=== PATIENT | male | born 1995 | race Caucasian/White ===

== ENCOUNTER 2017-06-06 16:36 | Emergency (ER) | payer BC ==
[2017-06-06 16:54] VITALS: BP 139/77
--- NOTE | 2017-06-06 17:17 | UC ---
Knee Pain HPI - HPI Summary HPI Summary: Patient presents s/p fall with left knee pain, he has not been able to bear weigh since the fall. He complains of pain immediately follow the fall, states it is worse if he attempts to bear weigh, but remain painful at rest. He denies any head or neck pain, denies LOC, and reports no other concerns at this visit. - History of Current Complaint Chief Complaint: UCLowerExtremity Stated Complaint: LEFT LEG PAIN Time Seen by Provider: 06/06/17 17:03 Hx Obtained From: Patient Onset/Duration: Sudden Onset Severity Initially: Moderate Severity Currently: Severe Pain Intensity: 4 Character: Sharp, Aching Aggravating Factor(s): Movement, Weight Bearing Alleviating Factor(s): Rest, Position Associated Signs And Symptoms: Positive: Swelling, Bruising Able to Bear Weight: No - Risk Factors Septic Arthritis Risk Factor: Negative Gout Risk Factor: Negative - Allergies/Home Medications Allergies/Adverse Reactions: Allergies Allergy/AdvReac Type Severity Reaction Status Date / Time No Known Allergies Allergy Verified 06/06/17 16:55 Home Medications: Home Medications Ibuprofen 600 mg PO ONCE 06/06/17 [History Confirmed 06/06/17] PMH/Surg Hx/FS Hx/Imm Hx Previously Healthy: Yes - Surgical History Surgical History: None - Family History Known Family History: Positive: None - Social History Occupation: Student Alcohol Use: Occasionally Substance Use Type: None Smoking Status (MU): Never Smoked Tobacco Have You Smoked in the Last Year: No Review of Systems Constitutional: Negative Skin: Negative Eyes: Negative ENT: Negative Respiratory: Negative Cardiovascular: Negative Gastrointestinal: Negative Genitourinary: Negative Motor: Negative Neurovascular: Negative Musculoskeletal: Decreased ROM, Edema Neurological: Negative Psychological: Negative Is Patient Immunocompromised?: No All Other Systems Reviewed And Are Negative: Yes Physical Exam Triage Information Reviewed: Yes Appearance: Well-Appearing Vital Signs: Initial Vital Signs Temp 98.7 F 06/06/17 16:52 Pulse 74 06/06/17 16:52 Resp 18 06/06/17 16:52 BP 139/77 06/06/17 16:52 Pulse Ox 99 06/06/17 16:52 Vital Signs Reviewed: Yes Musculoskeletal: Positive: Strength Limited @ - right knee inspection; soft tissue swelling note over the LCL, and inferior aspect of the patella. Palpation , tenderness on palpation of the LCL, and pain with varus stress testing. negative anterior and posterior draw sign. vascalr exam, strong posterior tibialis pulses, Neuro exam without deficits to touch distally., ROM Limited @, Edema @ Knee Pain Course/Dx - Course Course Of Treatment: Patient presents s/p hyperextension of the knee and impact for the lateral side, he has soft tissue swelling over the LCL suspicous for ACL injury. The patient was placed in a knee immobilizer and crutch walking, I have referred him to Dr. Ruth, he understands he need to call in the morning to make an appointment with him. He is neuro-vasc intact. I recommend he ice the knee for 20 minutes every 2 hours, elevate and nsaid for pain controll. He verbalized understanding of and in agreeement with the discharge plan. - Differential Dx/Diagnosis Differential Diagnosis/HQI/PQRI: Sprain, Strain, Other - knee pain Provider Diagnoses: knee pain. sprain. strain Discharge - Sign-Out/Discharge Documenting (check all that apply): Discharge - Discharge Plan Condition: Stable Disposition: HOME Patient Education Materials: Knee Pain (ED), Knee Immobilizer (ED), ACL Injury (ED) Referrals: No Primary Care Phys,NOPCP [Primary Care Provider] - Gamal Ruth MD [Medical Doctor] - - Billing Disposition and Condition Condition: STABLE Disposition: HOME
--- NOTE | 2017-06-06 17:25 | RAD ---
INDICATION: Lateral left knee pain following trauma COMPARISON: None TECHNIQUE: 4 view radiograph of the left knee. FINDINGS: The visualized bones are well-corticated and properly aligned. The joint spaces are properly maintained. There is no radiographic evidence of joint effusion. There is no acute fracture, dislocation or other focal bony abnormality. IMPRESSION: Normal knee radiograph as described above. If the patient's symptoms persist, follow-up imaging is recommended.
== END 2017-06-06 17:30 | disposition home or self-care (01) ==
LOC: UCEAST 16:36
DX: S86.912A Strain of unspecified muscle(s) and tendon(s) at lower leg level, left leg, initial encounter (principal); S83.92XA Sprain of unspecified site of left knee, initial encounter; W19.XXXA Unspecified fall, initial encounter; Y93.9 Activity, unspecified; Y92.9 Unspecified place or not applicable
CPT/HCPCS: 99212; G0463